=== PATIENT | female | born 1980 | race Caucasian/White ===

== ENCOUNTER 2020-04-01 15:19 | Inpatient (IN) | payer MEDICAID ==
[2020-04-01 16:19] LABS: APPEARANCE,URINE SLIGHTLY-CLOUDY; BILIRUBIN,URINE NEGATIVE (NEGATIVE); COLOR,URINE YELLOW; GLUCOSE, URINE NEGATIVE (NEGATIVE); KETONES,URINE NEGATIVE (NEGATIVE); LEUKOCYTE ESTERASE,URINE LARGE (NEGATIVE); NITRITE,URINE NEGATIVE (NEGATIVE); PROTEIN,URINE 30 mg/dL (NEGATIVE); URINE SPECIFIC GRAVITY 1.011; UROBILINOGEN,URINE NEGATIVE mg/dL (<2.0)
[2020-04-01 16:38] LABS: URINE AMPHETAMINES SCREEN NEGATIVE; URINE BARBITURATES SCREEN NEGATIVE; URINE COCAINE SCREEN NEGATIVE; URINE MARIJUANA (THC) SCREEN NEGATIVE; URINE METHADONE SCREEN NEGATIVE; URINE PHENCYCLIDINE SCREEN NEGATIVE
[2020-04-01 16:43] LABS: URINE BENZODIAZEPINES SCREEN NEGATIVE
[2020-04-01 16:46] LABS: ABSOLUTE EOSINOPHILS # (AUTO) 0.1 10^3/uL (0.0-0.6); ABSOLUTE LYMPHOCYTES (AUTO) 1.4 10^3/uL (0.5-4.7); ABSOLUTE MONOCYTES (AUTO) 0.6 10^3/uL (0.1-1.4); ABSOLUTE NEUT (AUTO) 9.1 10^3/uL (1.7-8.2); BASOPHILS % (AUTO) 0.4 % (0-2); EOSINOPHILS % (AUTO) 0.7 % (0-6); HEMATOCRIT 30.2 % (36.0-47.0); HEMOGLOBIN 10.4 g/dL (12.0-15.5); LYMPHOCYTES % (AUTO) 12.1 % (13-45); MEAN CORPUSCULAR HGB CONC 34.5 g/dL (32.0-36.0); MEAN CORPUSCULAR VOLUME 90 fl (80-97); MONOCYTES % (AUTO) 5.7 % (3-13); PLATELET COUNT 131 10^3/uL (150-450); RED BLOOD COUNT 3.35 10^6/uL (3.72-5.28); RED CELL DISTRIBUTION WIDTH 13.2 % (11.5-14.0); SEGMENTED NEUTROPHILS % (AUTO) 81.1 % (42-78); TOTAL CELLS COUNTED % (AUTO) 100 %; WHITE BLOOD COUNT 11.3 10^3/uL (4.0-10.5)
[2020-04-01 17:05] LABS: ALBUMIN 3.3 g/dL (3.5-5.0); ALKALINE PHOSPHATASE 135 U/L (38-126); ASPARTATE AMINO TRANSFERASE 24 U/L (14-36); BILIRUBIN,DIRECT 0.1 mg/dL (0.0-0.4); BILIRUBIN,TOTAL 0.3 mg/dL (0.2-1.3); BLOOD UREA NITROGEN 8 mg/dL (7-20); CALCIUM 8.9 mg/dL (8.4-10.2); GLUCOSE 135 mg/dL (75-110); POTASSIUM 3.5 mmol/L (3.6-5.0); URIC ACID 4.1 mg/dL (2.5-7.0)
[2020-04-01 17:10] LABS: CARBON DIOXIDE 23 mmol/L (22-30); CHLORIDE 106 mmol/L (98-107)
[2020-04-01 17:13] LABS: ANION GAP 6 (5-19)
[2020-04-01] MEDS ORDERED: ACETAMINOPHEN 325 MG TABLET PO ONE (17:21)
[2020-04-01] MEDS ORDERED: ACETAMINOPHEN 325 MG TABLET ONE (17:24)
[2020-04-02] MEDS ORDERED: NORMAL SALINE 250 ML IV PRN ×2 (04:42)
[2020-04-02] MEDS ORDERED: BISACODYL 10 MG SUPP.RECT PR ONE ×2 (08:44→09:00)
[2020-04-02] MEDS ORDERED: ONDANSETRON HCL INJ/PF 4 MG/2 ML SDV ONE (09:36)
[2020-04-02] MEDS ORDERED: LIDOCAINE 2% INJ-PF (20 MG/ML) 2 ML AMPUL ONE (09:36)
[2020-04-02] MEDS ORDERED: GLYCOPYRROLATE 1 MG/5 ML VIAL ONE (09:36)
[2020-04-02 10:27] LABS: ABSOLUTE BASOPHILS # (AUTO) 0.1 10^3/uL (0.0-0.2); ABSOLUTE EOSINOPHILS # (AUTO) 0.2 10^3/uL (0.0-0.6); ABSOLUTE LYMPHOCYTES (AUTO) 1.8 10^3/uL (0.5-4.7); ABSOLUTE MONOCYTES (AUTO) 0.6 10^3/uL (0.1-1.4); BASOPHILS % (AUTO) 0.5 % (0-2); EOSINOPHILS % (AUTO) 1.5 % (0-6); HEMOGLOBIN 11.1 g/dL (12.0-15.5); LYMPHOCYTES % (AUTO) 16.9 % (13-45); MEAN CORPUSCULAR HEMOGLOBIN 31.3 pg (27.0-33.4); MEAN CORPUSCULAR HGB CONC 34.6 g/dL (32.0-36.0); MEAN CORPUSCULAR VOLUME 91 fl (80-97); MONOCYTES % (AUTO) 5.9 % (3-13); PLATELET COUNT 140 10^3/uL (150-450); RED BLOOD COUNT 3.54 10^6/uL (3.72-5.28); RED CELL DISTRIBUTION WIDTH 13.3 % (11.5-14.0); SEGMENTED NEUTROPHILS % (AUTO) 75.2 % (42-78); TOTAL CELLS COUNTED % (AUTO) 100 %; WHITE BLOOD COUNT 10.7 10^3/uL (4.0-10.5)
[2020-04-02 10:49] LABS: ALBUMIN 3.3 g/dL (3.5-5.0); ALKALINE PHOSPHATASE 147 U/L (38-126); ANION GAP 8 (5-19); ASPARTATE AMINO TRANSFERASE 25 U/L (14-36); BILIRUBIN,TOTAL 0.4 mg/dL (0.2-1.3); BLOOD UREA NITROGEN 5 mg/dL (7-20); CALCIUM 8.7 mg/dL (8.4-10.2); CARBON DIOXIDE 20 mmol/L (22-30); CHLORIDE 108 mmol/L (98-107); GLUCOSE 77 mg/dL (75-110); INTERNATIONAL RATION (INR) 0.93; POTASSIUM 3.8 mmol/L (3.6-5.0); PROTHROMBIN TIME 12.7 SEC (11.4-15.4); TOTAL PROTEIN 6.2 g/dL (6.3-8.2); URIC ACID 3.7 mg/dL (2.5-7.0)
[2020-04-02 10:50] LABS: PARTIAL THROMBOPLASTIN TIME 27.2 SEC (23.5-35.8)
[2020-04-02] MEDS ORDERED: CEFAZOLIN SODIUM 2 GM in DEXTROSE 5%-WATER 50 ML IV PRN (13:07)
[2020-04-02] MEDS ORDERED: OXYTOCIN 10 UNIT/ML VIAL ONE ×2 (13:11→13:29)
[2020-04-02] MEDS ORDERED: OXYTOCIN/0.9 % SODIUM CHLORIDE 0 UNIT/0 ML RTUINJ ONE (13:12)
[2020-04-02] MEDS ORDERED: CARBOPROST TROMETHAMINE INJ 250 MCG/1 ML AMPULE ONE (13:12)
[2020-04-02] MEDS ORDERED: METHYLERGONOVINE MALEATE INJ/PF 0.2 MG/1 ML AMPULE ONE (13:12)
[2020-04-02] MEDS ORDERED: MISOPROSTOL 0.2 MG TABLET ONE (13:12)
[2020-04-02] MEDS ORDERED: TRANEXAMIC ACID INJ/PF 1,000 MG/10 ML SDV ONE (13:12)
[2020-04-02] MEDS ORDERED: CEFAZOLIN 2 GM/D5W RTU 2 GM/50 ML RTUPB IV ONE (13:22)
[2020-04-02] MEDS ORDERED: CITRIC ACID/SODIUM CITRATE ORAL SOLN 15 ML UDCUP ONE (13:22)
[2020-04-02] MEDS ORDERED: OXYTOCIN/0.9 % SODIUM CHLORIDE 30 UNIT/500 ML RTUINJ ONE (13:30)
[2020-04-02] MEDS ORDERED: ACETAMINOPHEN 1,000 MG/100 ML RTUPB IV ONE (13:30)
[2020-04-02] MEDS ORDERED: CITRIC ACID/SODIUM CITRATE ORAL SOLN 15 ML UDCUP PO ONE (14:15)
[2020-04-02] MEDS ORDERED: EPHEDRINE SULFATE INJ 50 MG/1 ML AMPULE ONE (15:01)
[2020-04-02] MEDS ORDERED: ACETAMINOPHEN 325 MG TABLET PO PRN (15:39)
[2020-04-02] MEDS ORDERED: OXYTOCIN/0.9 % SODIUM CHLORIDE 30 UNIT/500 ML RTUINJ IV PRN (15:39)
[2020-04-02] MEDS ORDERED: PROMETHAZINE HCL INJ 25 MG/1 ML VIAL IV PRN (15:39)
[2020-04-02] MEDS ORDERED: ACETAMINOPHEN 1,000 MG/100 ML RTUPB IV PRN (15:39)
[2020-04-02] MEDS ORDERED: OXYCODONE-ACETAMINOPHEN 5-325 MG TABLET PO PRN (15:39)
[2020-04-02] MEDS ORDERED: RINGERS SOLUTION,LACTATED 1,000 ML IV PRN (15:39)
[2020-04-02] MEDS ORDERED: DIPH/PERTUSS(ACELL)/TETANUS VAC/PF 0.5 ML SYR (>=10YO) IM PRN (15:39)
[2020-04-02] MEDS ORDERED: MEASLES,MUMPS&RUBELLA VACC/PF 0.5 ML VIAL SUBCUT PRN (15:39)
--- NOTE | 2020-04-02 16:09 | Brief Operative Note ---
BRIEF OPERATIVE REPORT DATE OF SURGERY: 04/02/20 TIME OF SURGERY: 14:00 PREOPERATIVE DIAGNOSIS: history of section x 2, AMA, macrosomia, Polyhydramnios, PreE, H/o preE with prior x 2, h/o PPH x 2, H/o transfusions, Anemia, Gestational Thrombocytopenia, hypertrophic scar POSTOPERATIVE DIAGNOSIS: LISA - Delivered SURGEON: MARY KATE AYALA FINDINGS: Significant pelvic adhesions, Anterior uterus adhered to anterior abdominal wall and rectus muscles. Omental adhesions to anterior uterus. VMI delivered at 1420, Apgars 4/8, Weight 4265g (9#6oz), QBL 670ml, EBL 700ml, UOP 100ml, IVF 2500ml. Bradycardia after spinal with question heart block rhythm resolved quickly with meds by STEVEDORE DOCK. Consult with Dr. Hadley and since common with anesthesia we will have patient seen as an outpatient. Will place outpat ient consult. COMPLICATIONS: None ESTIMATED BLOOD LOSS: 670 TISSUE REMOVED OR ALTERED: placenta and cord TECHNICAL PROCEDURE: Repeat section with scar revision
--- NOTE | 2020-04-02 16:12 | Operative Report ---
Operative Report DATE OF SURGERY: 04/02/20 PREOPERATIVE DIAGNOSIS: 38+6ega, , history of section x 2, AMA, macrosomia, Polyhydramnios, PreE, H/o preE with prior x 2, h/o PPH x 2, H/o transfusions, Anemia, Gestational Thrombocytopenia, hypertrophic scar POSTOPERATIVE DIAGNOSIS: LISA - delivered OPERATION: Repeat section with Scar revision SURGEON: MARY KATE AYALA ANESTHESIA: Spinal TISSUE REMOVED OR ALTERED: placenta and cord COMPLICATIONS: none ESTIMATED BLOOD LOSS: 700ml QUANTITATIVE BLOOD LOSS: 670 INTRAOPERATIVE FINDINGS: Significant pelvic adhesions, Anterior uterus adhered to anterior abdominal wall and rectus muscles. Omental adhesions to anterior uterus. VMI delivered at 1420, Apgars 4/8, Weight 4265g (9#6oz), QBL 670ml, EBL 700ml, UOP 100ml, IVF 2500ml. Bradycardia after spinal with question heart block rhythm resolved quickly with meds by BILLIARD PLAYER. Consult with Dr. Hadley and since common with anesthesia we will have patient seen as an outpatient. Will place outpatient consult. PROCEDURE: Anesthesia provider: [Dodie Churchill BILLIARD PLAYER] Urine output: [100ml] IV fluids: [2500ml] Indications: [39yo at 38+6ega presented on 04/01 and was admitted for symptomatic PreE. 24 hour UTP was 329mg. She has a History of 2 prior sections and PPH with transfusions. She declines BTL and is going to have a vasectomy. c/b AMA, macrosomia, polyhydramnios, anemia, and thrombocytopenia. She will need outpatient consult with Hematology if platlets do not return to normal after delivery. Also due to bradycardia in OR she will have outpatient cardiology consult as well. The risks benefits alternatives were reviewed and she desires to proceed with with planned Repeat section. ] Procedure: The patient was taken to the operating room where spinal anesthesia was obtained and found to be adequate. She was then prepped and draped in the normal sterile fashion and placed in the dorsal supine position with a leftward tilt. The prior Pfannenstiel skin incision was then removed and carried through to the underlying layers of the fascia with the scalpel. The fascia was incised in the midline and the incision extended laterally with the Skinner scissors. The superior aspect of the fascial incision was then grasped with Mike clamps elevated and the underlying rectus muscles and uterine body was dissected off [sharply]. Attention was then turned to the inferior aspect of the fascial incision which in a similar fashion was grasped, tented up with Mike clamps, and the rectus muscles dissected off [bluntly]. The rectus muscles were then in the midline and the peritoneum at the amount identified and entered [sharply]. The peritoneal incision was then extended superiorly and inferiorly with good visualization of the bladder. The bladder blade was inserted and the vesicouterine peritoneum identified grasped with [place] pickups and entered sharply with the Metzenbaum scissors. This incision was then extended laterally with the Metzenbaum scissors and a bladder flap created digitally. The bladder blade was then reinserted and the lower uterine segment incised in a transverse fashion with the scalpel. The uterine incision was then extended bluntly. The bladder blade was removed and the infant's head was delivered from cephalic presentation atraumatically. The nose and mouth were suctioned and the cord doubly clamped and cut. And the infant was handed off to waiting pediatricians. The placenta was then delivered spontaneously and the uterus exteriorized and cleared of all clots and debris. The uterine incision was then repaired with 1- 0 Vicryl in a running locked fashion. A second layer of the same suture was used to obtain hemostasis via imbrication of the initial layer. The bladder flap was then repaired with 3-0 chromic in a running fashion. The uterus was returned to the patient's abdomen and Surgicel was placed for hemostasis and Interceed was placed overlying the uterine incision to prevent adhesions. The gutters were cleared of all clots and debris. All operative sites were noted to be hemostatic. The fascia was reapproximated with 0 Vicryl in a running fashion from each lateral edge to the midline. The skin was closed with 3-0 Monocryl in a running subcuticular fashion with overlying Exofin for additional dressing as well as wound closure. The patient tolerated the procedure well. Sponge lap needle and instrument counts are correct times 2. 2 g of Ancef were given prior to skin incision. The patient was taken to the recovery area awake and in stable condition.
[2020-04-02] MEDS ORDERED: MORPHINE SULFATE 10 MG/ML INJ ONE (16:24)
--- NOTE | 2020-04-02 16:43 | Birth Certificate Data ---
Cert Data Datetime Report Generated by ANDRÉS: 04/02/2020 16:42 CERTIFICATE DATA Delivery Provider: Zeinab Nelson MD (04/02/2020 16:04:Sara Thornton RN) 47a. Care: Yes (04/01/2020 15:29:Sara Thornton RN) 47b. Date of First Visit: 10/03/2019 00:00 (04/01/2020 15:29:Sara Thornton RN) 47c. Date of Last Visit: 04/01/2020 00:00 (04/01/2020 15:29:Sara Thornton RN) 47d. Number of Visits: 11 (04/01/2020 15:29:Sara Thornton RN) 48a. Number of Prev Live Births: 2 (04/01/2020 15:29:Sara Thornton RN) 48b. Now Livin (04/01/2020 15:29:Sara Thornton RN) 48c. Live Births Now : 0 (04/01/2020 15:29:QS system process) 48d. Date of Last Live : 07/16/2007 00:00 (04/01/2020 15:29:Sara Sales RN) 48e. Losses: 0 (04/01/2020 15:29:Sara Thornton RN) RISK FACTORS IN THIS 49a. Diabetes: No (04/01/2020 15:29:Sara Thornton RN) 49b. Hypertension: No (04/01/2020 15:29:Sara Thornton RN) 49c. Previous Births: 1 (04/01/2020 15:29:Sara Thornton RN) 49d. Stillborns: No (04/01/2020 15:29:Sara Thornton RN) 49d. IUGR: No (04/01/2020 15:29:Sara Thornton RN) 49e. Infertility Treatment: No (04/01/2020 15:29:Sara Thornton RN) 49f. Previous Cesareans: 2 (04/01/2020 15:29:Sara Thornton RN) Mother's Height 50b. Height Inches: 64 (04/02/2020 14:56:QS system process) Mother's Weight 51a. Pre- Weight (lbs): 158 (04/01/2020 15:29:Sara Thornton RN) 51b. Weight at Delivery (lbs): 202 (04/02/2020 14:56:QS system process) 52. Dt Last Normal Menses Began: 06/24/2019 00:00 (04/01/2020 15:29:Sara Thornton RN) Infections Present/Treated 53a. Gonorrhea: No (04/01/2020 15:29:Sara Thornton RN) Results this Hospital Visit : Negative (04/01/2020 15:29:Sara Thornton RN) 53b. Syphilis: No (04/01/2020 15:29:Sara Thornton RN) 53c. Chlamydia: No (04/01/2020 15:29:Sara Thornton RN) Results this Hospital Visit: Negative (04/01/2020 15:29:Sara Thornton RN) 53d. Hepatitis B: No (04/01/2020 15:29:Sara Thornton RN) Results this Hospital Visit: Negative (04/01/2020 15:29:Sara Sales, RN) 53e. Hepatitis C: Negative (04/01/2020 15:29:Sara Sales, RN) 53h. Mother Tested for HBsAG: Yes (04/01/2020 15:29:Saar Sales, RN) 53i. Date Tested: 10/03/2019 00:00 (04/01/2020 15:29:Sara Sales, RN) 53j. Test Result: Negative (04/01/2020 15:29:Sara Sales, RN) Cigarette Smoking Cigarette Smoking: Never Smoker. [id number] (04/01/2020 15:29:Sara Sales, RN) Onset of Labor 56a. PROM >12 Hrs: 0.02 (04/01/2020 15:29:QS system process) 57a. Induction of Labor: N/A (04/01/2020 15:29:Sara Thornton RN) 57a. Induction of Labor: Cytotec @ 1000mcg (04/02/2020 16:02:Sara Thornton RN) 57c. Non-Vertex Presentation A: Vertex (04/01/2020 15:29:Sara Thornton RN) 57d. Steroids - Lung Mat: None (04/01/2020 15:29:Sara Thornton RN) 57d. Steroids - Lung Mat: Not Applicable (04/01/2020 15:29:Sara Thornton RN) 57e. Antibiotics During Labor: 04/02/2020 13:48 (04/01/2020 15:29:Sara Thornton RN) 57f. Mat Chorio or Temp >100.4: 98.2 (04/01/2020 15:29:Sara Thornton RN) 57g. Moderate/Heavy Meconium: Clear (04/01/2020 15:29:Sara Thornton RN) 57h. Intolerance of Labor: Other (04/01/2020 15:29:Sara Thornton RN) : Pre-eclampsia (04/01/2020 15:29:Sara Thornton RN) 57i. Epidural/Spinal Anesthesia: None (04/01/2020 15:29:Sara Thornton RN) Method of Delivery 58a. Forceps - Unsuccessful A: N/A (04/01/2020 15:29:Sara Thornton RN) 58b. Vacuum - Unsuccessful A: N/A (04/01/2020 15:29:Sara Thornton RN) 58c. Presentation at 58c. Presentation at - A : Vertex (04/01/2020 15:29:Sara Thornton RN) 58c. Presentation at - A : N/A (04/01/2020 15:29:Sara Thornton RN) 58c. Presentation at - A : Cephalic (04/01/2020 15:29:Sara Thornton RN) Final Route and Method of Del 58d. Baby A Route/Delivery: (04/01/2020 15:29:Lorie Carbajal RN) 58e. Trial of Labor Attempted: No (04/01/2020 15:29:Sara Thornton RN) 58e. Trial of Labor Attempted A: N/A (04/01/2020 15:29:Sara Thornton RN) 58e. Trial of Labor Attempted B: N/A (04/01/2020 15:29:Sara Sales, RN) Maternal Morbidity 59b. 3rd or 4th Degree Lacs: None (04/01/2020 15:29:Sara Sales, RN) Birthweight Baby A: 4265 (04/01/2020 15:29:Lorie Solomon, RN) 60a. Pounds : 9 (04/01/2020 15:29:QS system process) 60b. Ounces: 6 (04/01/2020 15:29:QS system process) 61. GA at Delivery Baby A: 38.6 (04/01/2020 15:29:Lorie Carbajal RN) : Early Term- 37- 38.6 Weeks (04/01/2020 15:29:QS system process) 62a. 5 Minute Baby A: 8 (04/01/2020 15:29:QS system process)
--- NOTE | 2020-04-02 16:43 | Delivery Summary ---
Del Sum A-C Datetime Report Generated by CPN: 04/02/2020 16:42 DELIVERY PERSONNEL DELIVERY PERSONNEL: [id number] Delivery Doctor:: Zeinab Nelson MD MARKETING DATABASE CONSULTANT:: Thanh Moore CRNA Manager Body:: Sara Thornton RN Neonatal Nurse Practitioner:: PETTY Flaherty Nursery Nurse:: Lorie Carbajal RN E Learning Coordinator/WOODWORKING MACHINE OFFBEARER: Ledy Velasquez CST E Learning Coordinator/WOODWORKING MACHINE OFFBEARER: Ginny Lopez CST MATERNAL INFORMATION Delivery Anesthesia: Spinal (Annotations: Data stored by [facility] on behalf of user) Medications After Delivery: Pitocin 30 Units in 500ml NS/D5W; Pitocin Drip 20 Units/1000ml NSS; Cytotec 1000mcg Per Rectum/Vagina Delivery QBL: 670 Maternal Complications: Other Complication Details: Pre-eclampsia LABOR SUMMARY EDC: 04/10/2020 00:00 No. Babies in Womb: 1 Attempted: No Labor Anesthesia: None LABOR INFORMATION Reason for Induction: Not Applicable Cervical Ripening Agents: Cytotec @ 1000mcg Oxytocin: N/A Group B Beta Strep: Negative Antibiotics # of Doses: 1 Antibiotics Time of Last Dose: 04/02/2020 13:48 Name of Antibiotic Given: Ancef 2g Steroids Given: None Reason Steroids Not Administered: Not Applicable MEMBRANES Membranes Rupture Method: Artificial Rupture of Membranes: 04/02/2020 14:19 Length of Rupture (hr): 0.02 Amniotic Fluid Color: Clear Amniotic Fluid Amount: Copious Amniotic Fluid Odor: Normal STAGES OF LABOR Stage 3 hr: 0 Stage 3 min: 1 VAGINAL DELIVERY Episiotomy: None Laceration #1: None Laceration Extension #1: N/A Laceration Repair: Not Applicable Sponge Count Correct: N/A Sharps Count Correct: N/A CSECTION DELIVERY Primary Indication: Other Other Primary Indication: Pre-eclampsia CSection Urgency: Scheduled CSection Incidence: Repeat Labor: No Labor Elective: Elective CSection Incision: Lower Uterine Transverse BABY A INFORMATION Infant Delivery Date/Time: 04/02/2020 14:20 Method of Delivery: Nurse Controlled Delivery: No Born in Route : No : N/A Forceps: N/A Vacuum Extraction: N/A Shoulder Dystocia : No PRESENTATION/POSITION BABY A Presentation: Cephalic Cephalic Presentation: Vertex Vertex Position: Right Occipital Anterior Breech Presentation: N/A PLACENTA INFORMATION BABY A Placenta Delivery Time : 04/02/2020 14:21 Placenta Method of Delivery: Manual Removal Placenta Status: Delivered SCORES BABY A Heart Rate 1 min: Slow, Below 100 bpm Resp Effort 1 min: Slow, Irregular Reflex Irritability 1 min: Grimace Muscle Tone 1 min: Some Flexion of Extremities Color 1 min: Blue/Pale Resuscitation Effort 1 min: Tactile Stimulation; PPV/NCPAP SCORE 1 MIN: 4 Heart Rate 5 min: >100 bpm Resp Effort 5 min: Good Cry Reflex Irritability 5 min: Cough or Sneeze or Pulls Away Muscle Tone 5 min: Active Motion Color 5 min: Blue/Pale Resuscitation Effort 5 min: Tactile Stimulation; Oxygen SCORE 5 MIN: 8 INFORMATION BABY A Gestational Age at Delivery: 38.6 Gestational Status: Early Term- 37- 38.6 Weeks Infant Outcome : Liveborn Infant Condition : Stable Sex: Male IDENTIFICATION BABY A Infant Verification Date/Time: 04/02/2020 14:25 ID Band Number: [id number] Mother's Name Verified: Yes Infant RN Verifying Infant: M. Sales, RN Additional Verifying Personnel: C. [place], RN WEIGHT/LENGTH BABY A Birthweight (gm): 4265 Weight (lb): 9 Weight (oz): 6 Infant Length (in): 20.75 Length (cm): 52.71 CORD INFORMATION BABY A No. Cord Vessels: 3 Nuchal Cord : N/A Cord Blood Taken: Yes-For Eval (Mom's Blood Type - or O+) Infant Suction: Mouth; Nose; Pharynx ASSESSMENT BABY A Infant Complications: None Physical Findings at Delivery: Within Normal Limits Infant Respirations: Appears Normal Group Reservations Coordinator/ALS Called : Yes Infant Care By: Shukri Carbajal RN Transferred To: [facility] BABY B INFORMATION : N/A
[2020-04-02] MEDS ORDERED: MISOPROSTOL 0.1 MG TABLET PR ONE (17:03)
[2020-04-02] MEDS ORDERED: OXYCODONE-ACETAMINOPHEN 5-325 MG TABLET ONE (17:20)
[2020-04-02] MEDS: OXYCODONE-ACETAMINOPHEN 5-325 MG TABLET PO PRN (17:21)
[2020-04-02] MEDS: HYDROMORPHONE HCL INJ/PF 2 MG/ML AMPULE IV PRN ×2 (18:39→23:21)
[2020-04-03] MEDS: OXYCODONE-ACETAMINOPHEN 5-325 MG TABLET PO PRN ×4 (02:34→20:50)
[2020-04-03] MEDS: HYDROMORPHONE HCL INJ/PF 2 MG/ML AMPULE IV PRN (06:04)
[2020-04-03 07:36] LABS: HEMATOCRIT 25.5 % (36.0-47.0); MEAN CORPUSCULAR HEMOGLOBIN 31.1 pg (27.0-33.4); MEAN CORPUSCULAR HGB CONC 34.6 g/dL (32.0-36.0); MEAN CORPUSCULAR VOLUME 90 fl (80-97); PLATELET COUNT 112 10^3/uL (150-450); RED BLOOD COUNT 2.84 10^6/uL (3.72-5.28); RED CELL DISTRIBUTION WIDTH 13.3 % (11.5-14.0); WHITE BLOOD COUNT 14.2 10^3/uL (4.0-10.5)
[2020-04-03 07:38] LABS: HEMOGLOBIN 8.8 g/dL (12.0-15.5)
[2020-04-03] MEDS: PRENATAL VITAMIN W DHA CAPSULE PO SCH (10:05)
[2020-04-03] MEDS: DOCUSATE SODIUM 100 MG CAPSULE PO SCH ×3 (10:05→18:53)
--- NOTE | 2020-04-03 12:13 | PDOC PROGRESS REPORT ---
Subjective-OB Progress Note for:: 04/03/20 Subjective: Pt doing well, no complaints. States pain is controlled, voiding w/o difficulty, reg diet, light bleeding w/o clots, and is passing flatus. Physical Exam (OB) Vital Signs: Temp Pulse Resp BP Pulse Ox 98.8 F 85 18 142/75 H 98 04/03/20 11:04 04/03/20 11:04 04/03/20 11:04 04/03/20 11:04 04/03/20 11:04 Intake & Output 04/02/20 04/03/20 04/04/20 06:59 06:59 06:59 Intake Total 800 Output Total 1500 Balance -700 Weight 92.2 kg - PIH/Pre-Eclampsia Clonus: Negative Headache: Absent Epigastric Pain: No Visual Changes: No - Dressing Removed: No - Maternal Morbidity 59. Maternal Morbidity (serious complications experinced by the mother associated with labor and delivery: None of the above - Lochia Lochia Amount: Scant < 10 ml Lochia Color: Rubra/Red - Abdomen Description: Tender, Soft Hernia Present: No Fundal Description: Firm, Midline Fundal Height: u/u - u/2 Objective-Diagnostic Laboratory: 04/03/20 06:22 04/02/20 09:50 04/03/20 06:22 WBC 14.2 H RBC 2.84 L Hgb 8.8 L D Hct 25.5 L MCV 90 MCH 31.1 MCHC 34.6 RDW 13.3 Plt Count 112 L Assessment and Plan(PN) - Assessment and Plan (1) Chronic anemia Is this a current diagnosis for this admission?: Yes (2) Gestational thrombocytopenia Qualifiers: Trimester: third trimester Qualified Code(s): O99.113 - Other diseases of the blood and blood-forming organs and certain disorders involving the immune mechanism complicating , third trimester; D69.6 - Thrombocytopenia, unspecified Is this a current diagnosis for this admission?: Yes (3) History of 2 sections Is this a current diagnosis for this admission?: Yes (4) Status post repeat low transverse section Is this a current diagnosis for this admission?: Yes - Time Spent with Patient Time with patient: Less than 15 minutes Medications reviewed and adjusted accordingly: Yes - Disposition Anticipated Discharge Disposition: Home, Self Care Anticipated Discharge Timeframe: within 24 hours
[2020-04-03] MEDS ORDERED: DIBUCAINE 1% OINTMENT 28 GM TP PRN (16:22)
[2020-04-03] MEDS ORDERED: SENNOSIDES/DOCUSATE 8.6-50 MG 1 EACH TABLET PO PRN (16:23)
[2020-04-03] MEDS: GLYCERIN/WITCH HAZEL LEAF 1 EACH MED..WIPE TP PRN (18:53)
[2020-04-03] MEDS: SIMETHICONE 80 MG TAB.CHEW PO PRN (18:54)
[2020-04-04] MEDS: OXYCODONE-ACETAMINOPHEN 5-325 MG TABLET PO PRN ×3 (01:06→12:13)
[2020-04-04] MEDS: SIMETHICONE 80 MG TAB.CHEW PO PRN ×2 (01:17→09:36)
[2020-04-04] MEDS: DOCUSATE SODIUM 100 MG CAPSULE PO SCH (09:35)
[2020-04-04] MEDS: PRENATAL VITAMIN W DHA CAPSULE PO SCH (09:35)
[2020-04-04] MEDS: GLYCERIN/WITCH HAZEL LEAF 1 EACH MED..WIPE TP PRN (09:35)
[2020-04-04 11:58] VITALS: BP 143/79
--- NOTE | 2020-04-04 12:59 | PDOC DISCHARGE SUMMARY ---
Impression - Admit/DC Date/PCP Admission Date/Primary Care Provider: 04/01/20 17:36 FEDERICO AGUILAR MD Discharge Date: 04/04/20 - Discharge Diagnosis (1) Chronic anemia Is this a current diagnosis for this admission?: Yes (2) Gestational thrombocytopenia Is this a current diagnosis for this admission?: Yes (3) History of 2 sections Is this a current diagnosis for this admission?: Yes (4) Status post repeat low transverse section Is this a current diagnosis for this admission?: Yes - Additional Information Resuscitation Status: Full Code Discharge Diet: Regular Discharge Activity: Balance Activity w/Rest, Pelvic Rest Referrals: FEDERICO AGUILAR MD [Primary Care Provider] - Prescriptions: Oxycodone HCl/Acetaminophen [Percocet 5-325 mg Tablet] 1 tab PO Q4HP PRN #30 tablet PRN Reason: Ibuprofen [Motrin 800 mg Tablet] 800 mg PO Q8HP PRN #60 tab PRN Reason: Home Medications: Ferrous Sulfate [Cedrick-Time] 325 mg PO DAILY 04/01/20 Prenat 115/Iron Fum/Folic/Dss [ 19 Tablet] 1 tab PO DAILY 04/01/20 Ibuprofen [Motrin 800 mg Tablet] 800 mg PO Q8HP PRN #60 tab 04/04/20 Oxycodone HCl/Acetaminophen [Percocet 5-325 mg Tablet] 1 tab PO Q4HP PRN #30 tablet 04/04/20 HPI Gestational Age: 38.6 Reason(s) for Admission: Obstetric Complications, PIH Procedures: NST Intrapartum Procedure(s): : Low Cervical, Transverse Hospital Course 59. Maternal Morbidity (serious complications experinced by the mother associated with labor and delivery: None of the above Results Laboratory Results: WBC 14.2 10^3/uL (4.0-10.5) H 04/03/20 06:22 RBC 2.84 10^6/uL (3.72-5.28) L 04/03/20 06:22 Hgb 8.8 g/dL (12.0-15.5) L D 04/03/20 06:22 Hct 25.5 % (36.0-47.0) L 04/03/20 06:22 MCV 90 fl (80-97) 04/03/20 06:22 MCH 31.1 pg (27.0-33.4) 04/03/20 06:22 MCHC 34.6 g/dL (32.0-36.0) 04/03/20 06:22 RDW 13.3 % (11.5-14.0) 04/03/20 06:22 Plt Count 112 10^3/uL (150-450) L 04/03/20 06:22 Lymph % (Auto) 16.9 % (13-45) 04/02/20 09:50 [place] % (Auto) 5.9 % (3-13) 04/02/20 09:50 Eos % (Auto) 1.5 % (0-6) 04/02/20 09:50 Baso % (Auto) 0.5 % (0-2) 04/02/20 09:50 Absolute Neuts (auto) 8.0 10^3/uL (1.7-8.2) 04/02/20 09:50 Absolute Lymphs (auto) 1.8 10^3/uL (0.5-4.7) 04/02/20 09:50 Absolute Monos (auto) 0.6 10^3/uL (0.1-1.4) 04/02/20 09:50 Absolute Eos (auto) 0.2 10^3/uL (0.0-0.6) 04/02/20 09:50 Absolute Basos (auto) 0.1 10^3/uL (0.0-0.2) 04/02/20 09:50 Seg Neutrophils % 75.2 % (42-78) 04/02/20 09:50 PT 12.7 SEC (11.4-15.4) 04/02/20 09:50 INR 0.93 04/02/20 09:50 APTT 27.2 SEC (23.5-35.8) 04/02/20 09:50 Sodium 135.5 mmol/L (137-145) L 04/02/20 09:50 Potassium 3.8 mmol/L (3.6-5.0) 04/02/20 09:50 Chloride 108 mmol/L (98-107) H 04/02/20 09:50 Carbon Dioxide 20 mmol/L (22-30) L 04/02/20 09:50 Anion Gap 8 (5-19) 04/02/20 09:50 BUN 5 mg/dL (7-20) L 04/02/20 09:50 Creatinine 0.58 mg/dL (0.52-1.25) 04/02/20 09:50 Est GFR ( Amer) > 60 (>60) 04/02/20 09:50 Est GFR (MDRD) Non-Af > 60 (>60) 04/02/20 09:50 Glucose 77 mg/dL (75-110) 04/02/20 09:50 Uric Acid 3.7 mg/dL (2.5-7.0) 04/02/20 09:50 Calcium 8.7 mg/dL (8.4-10.2) 04/02/20 09:50 Total Bilirubin 0.4 mg/dL (0.2-1.3) 04/02/20 09:50 Direct Bilirubin 0.0 mg/dL (0.0-0.4) 04/02/20 09:50 Neonat Total Bilirubin Not Reportable 04/02/20 09:50 Neonat Direct Bilirubin Not Reportable 04/02/20 09:50 Neonat Indirect Bili Not Reportable 04/02/20 09:50 AST 25 U/L (14-36) 04/02/20 09:50 ALT 17 U/L (<35) 04/02/20 09:50 Alkaline Phosphatase 147 U/L (38-126) H 04/02/20 09:50 Lactate Dehydrogenase 160 U/L (120-246) 04/02/20 09:50 Total Protein 6.2 g/dL (6.3-8.2) L 04/02/20 09:50 Albumin 3.3 g/dL (3.5-5.0) L 04/02/20 09:50 Urine Color YELLOW 04/01/20 15:45 Urine Appearance SLIGHTLY-CLOUDY 04/01/20 15:45 Urine pH 7.0 (5.0-9.0) 04/01/20 15:45 Ur Specific [place] 1.011 04/01/20 15:45 Urine Protein 30 mg/dL (NEGATIVE) H 04/01/20 15:45 Urine Glucose (UA) NEGATIVE mg/dL (NEGATIVE) 04/01/20 15:45 Urine Ketones NEGATIVE mg/dL (NEGATIVE) 04/01/20 15:45 Urine Blood SMALL (NEGATIVE) H 04/01/20 15:45 Urine Nitrite NEGATIVE (NEGATIVE) 04/01/20 15:45 Urine Bilirubin NEGATIVE (NEGATIVE) 04/01/20 15:45 Urine Urobilinogen NEGATIVE mg/dL (<2.0) 04/01/20 15:45 Ur Leukocyte Esterase LARGE (NEGATIVE) H 04/01/20 15:45 Urine Ascorbic Acid NEGATIVE (NEGATIVE) 04/01/20 15:45 Urine Opiates Screen NEGATIVE 04/01/20 15:45 Urine Methadone Screen NEGATIVE 04/01/20 15:45 Ur Barbiturates Screen NEGATIVE 04/01/20 15:45 Ur Phencyclidine Scrn NEGATIVE 04/01/20 15:45 Ur Amphetamines Screen NEGATIVE 04/01/20 15:45 U Benzodiazepines Scrn NEGATIVE 04/01/20 15:45 Urine Cocaine Screen NEGATIVE 04/01/20 15:45 U Marijuana (THC) Screen NEGATIVE 04/01/20 15:45 Blood Type O POSITIVE 04/01/20 16:29 Blood Type Confirm O POSITIVE 04/02/20 05:17 Antibody Screen NEGATIVE 04/01/20 16:29 Crossmatch See Detail 04/01/20 16:29 Plan Plan of Treatment: f/u at [facility] Sunday for incision check Time Spent: Less than 30 Minutes
== END 2020-04-04 16:11 | disposition home or self-care (01) | DRG 787 ==
LOC: LC 15:19 → LR 17:36 → 2S 04-02 18:20
PROVIDERS: ADMIT Obstetrics & Gynecology; ATTEND Obstetrics & Gynecology
PROC: 10D00Z1 Extraction of Products of Conception, Low, Open Approach (ICD-10-PCS; principal; 2020-04-02)
DX: O34.211 Maternal care for low transverse scar from previous cesarean delivery (principal); O99.12 Other diseases of the blood and blood-forming organs and certain disorders involving the immune mechanism complicating childbirth; O40.3XX0 Polyhydramnios, third trimester, not applicable or unspecified; O99.892 Other specified diseases and conditions complicating childbirth; N85.8 Other specified noninflammatory disorders of uterus; O14.94 Unspecified pre-eclampsia, complicating childbirth; O36.63X0 Maternal care for excessive fetal growth, third trimester, not applicable or unspecified; O99.02 Anemia complicating childbirth; R00.1 Bradycardia, unspecified; O13.4 Gestational [pregnancy-induced] hypertension without significant proteinuria, complicating childbirth; Z3A.38 38 weeks gestation of pregnancy; Z37.0 Single live birth; Z88.2 Allergy status to sulfonamides
CPT/HCPCS: 1961; 36415; 80053; 80307; 81005; 83615; 84550; 85025; 85027; 85610; 85730; 86850; 86900; 86901; 86920; 88307; 94760; 94799; J0131; J0690; J1170; J2210; J2270; J2405; J2590; J3490; J7060